=== PATIENT | female | born 2000 | race Caucasian/White ===

== ENCOUNTER 2021-08-05 17:15 | Emergency (ER) | payer MEDICAID, SELFPAY ==
[2021-08-05 17:27] VITALS: BP 134/90; PULSE 85; RESP 16; TEMP 36.3; O2SAT 100
--- NOTE | 2021-08-05 17:29 | ED.FEMALEGU ---
HPI - Female Genitourinary General Chief complaint: Urogenital-Female Stated complaint: STD Time Seen by Provider: 08/05/21 17:29 Source: patient Mode of arrival: ambulatory Limitations: no limitations History of Present Illness HPI Narrative: 21-year-old female presents with complaint of dysuria, urgency, frequency for 2 to 3 days. Reports started next day after sexual intercourse. Denies nausea vomiting diarrhea. Denies fever chills. Denies abdominal or back pain. Denies vaginal discharge. All systems reviewed and negative except as noted above. Related Data Allergies Allergy/AdvReac Type Severity Reaction Status Date / Time No Known Allergies Allergy Verified 08/05/21 17:49 Review of Systems Review of Systems: CONSTITUTIONAL: Denies fever, chills, or sweats. EYES: Denies visual changes, redness, or discharge. ENT: Denies rhinorrhea, congestion, sore throat, or otalgia. CARDIOVASCULAR: Denies chest pain, palpitations, or edema. RESPIRATORY: Denies cough or dyspnea. GASTROINTESTINAL: Denies abdominal pain, nausea, vomiting, or diarrhea. GENITOURINARY: Reports dysuria, frequency, urgency. Denies hematuria. SKIN: Denies rash or itching. MUSCULOSKELETAL: Denies back pain, joint pain, or myalgia. NEUROLOGIC: Denies headache, numbness, or weakness. PSYCHIATRIC: Denies anxiety or depression. All other systems reviewed are negative, except as documented in HPI. PMFSH Comments At time of signature, agree with nursing past medical, surgical, social and family history. There is no relevant family history pertinent to the presenting complaint. Exam Narrative: GENERAL: This is a well-nourished, well-developed patient, in no apparent distress. HEAD: normocephalic, atraumatic. EYES: PERRL. Sclera clear/white. EARS: External ears normal tact. NOSE: External nose normal THROAT: Mucous membranes moist, posterior pharynx clear. NECK: Neck supple, non-tender without lymphadenopathy, masses or thyromegaly. CARDIOVASCULAR: Regular rate and rhythm without murmurs, gallops, or rubs. RESPIRATORY: Clear to auscultation. Breath sounds equal bilaterally. No wheezes, rales, or rhonchi. SKIN: warm, Dry, intact with no suspicious lesions or rash, good texture and turgor. NEURO: awake, alert, and oriented to person, place and time. There were no obvious focal neurologic abnormalities. EXTREMITIES: Normal range of motion to all extremities. BACK: Nontender without deformity. No CVA tenderness. Course Course Level of Care: Express Care Visit Vital Signs Vital signs: Vital Signs Temperature 36.3 C L 08/05/21 17:27 Pulse Rate 85 08/05/21 17:27 Respiratory Rate 16 08/05/21 17:27 Blood Pressure 134/90 08/05/21 17:27 Pulse Oximetry 100 08/05/21 17:27 Temperature 36.3 C L 08/05/21 17:27 Pulse Rate 85 08/05/21 17:27 Respiratory Rate 16 08/05/21 17:27 Blood Pressure 134/90 08/05/21 17:27 Pulse Oximetry 100 08/05/21 17:27 Reviewed MDM - Female Genitourinary MDM Narrative Medical decision making narrative: Patient is aware of diagnosis, understands and agrees to treatment plan. Anticipatory guidance given. Patient agrees to follow-up as directed and is aware of reasons to seek care at the emergency department. Portions of this record may have been created with voice recognition software Differential Diagnosis Differential diagnosis: Likely urinary tract infection and cystitis Lab Data Labs: Urine Glucose Negative Reference Range: Negative Urine Bilirubin Negative Reference Range: Negative Urine Ketone Negative Reference Range: Negative Urine Specific [place] 1.030 Reference Range:1.001-1.035 Urine Blood 3+
== END 2021-08-05 17:51 | disposition home or self-care (01) ==
PROVIDERS: Emergency Provider Nurse Practitioner Family
DX: N39.0 Urinary tract infection, site not specified (principal)
CPT/HCPCS: 81003; 87077; 87086; 87088; 87186; 99213; G0463

== ENCOUNTER 2021-08-08 13:08 | Emergency (ER) | payer MEDICAID, SELFPAY ==
[2021-08-08 13:18] VITALS: BP 116/86; PULSE 89; RESP 16; TEMP 36.5; O2SAT 99
--- NOTE | 2021-08-08 13:20 | ED.ABDPAIN ---
HPI - Abdominal Pain General Chief Complaint: Abdominal Pain Stated Complaint: Abdominal Pain Time Seen by Provider: 08/08/21 13:50 Source: patient, RN notes reviewed and old records reviewed Mode of arrival: ambulatory Limitations: no limitations History of Present Illness HPI narrative: 21-year-old female presents to the [facility] with increased pain of suprapubic, left lower, left upper, epigastric and right upper quadrants. Patient was seen on August 05 and diagnosed with a UTI. Patient states that she started taking her Bactrim on Sunday and has taken the Pyridium. Patient also states that she is not getting any better with taking Tylenol. Denies fevers, chest pain, nausea or vomiting. MD elicited complaint: abdominal pain Related Data Allergies Allergy/AdvReac Type Severity Reaction Status Date / Time No Known Allergies Allergy Verified 08/08/21 13:25 Review of Systems Review of Systems: All systems reviewed & are unremarkable except as noted in HPI and below Constitutional: Constitutional: Reports no additional constitutional complaints, Denies body ache(s), Denies chills and Denies fever(s) Eyes: Eyes: Reports no additional eye complaints ENT: Reports system reviewed and no additional complaints, except as documented Cardiovascular: Cardiovascular: Reports no additional cardiovascular complaints, Denies chest pain and Denies dyspnea Respiratory: Respiratory: Reports no additional respiratory complaints, Denies cough and Denies dyspnea Gastrointestinal: Gastrointestinal: Reports as per HPI, Reports abdominal pain, Denies diarrhea, Denies nausea and Denies vomiting Genitourinary: Genitourinary: Reports no additional female genitourinary complaints, Denies hematuria, Denies dysuria and Denies urinary incontinence Musculoskeletal: Musculoskeletal: Reports no additional musculoskeletal complaints and Denies back pain Integumentary/Breasts: Skin/Breast: Reports system reviewed and no additional complaints, except as docu Neurologic: Reports system reviewed and no additional complaints, except as documented Psychiatric: Psychiatric: Reports no additional psychiatric complaints Allergic/Immunologic: Allergic/Immunologic: Reports no additional allergic/immunologic complaints PMFSH Past Medical History Medical History (Updated 08/08/21 @ 15:58 by Quiana Morin APRN) Patient denies medical problems Surgical History Surgical History (Updated 08/08/21 @ 14:00 by Quiana Morin APRN) No pertinent past surgical history Social History Social History (Updated 08/08/21 @ 14:01 by MAICO Albarran Gender identity (if verbalized by the patient): Female Comments At the time of my signature, I reviewed and agree with the nursing past medical, surgical, social, and family history. There is no relevant family history pertinent to the patient complaint. Exam Const: General: cooperative, healthy appearing, comfortable, no acute distress, well developed and alert Nutritional Appearance: well nourished Orientation/consciousness: patient oriented x3 Limitations: no limitations HENMT: Head: normal to inspection Ears: external ears normal Eyes: Pupils: Equal, round and reactive pupils present Neck: Neck: normal visual inspection, no lymphadenopathy and no meningeal signs Chest: Chest palpation & inspection: normal inspection of the chest Resp: Effort & Inspection: normal respiratory effort, able to speak in complete sentences and no use of accessory muscles Auscultation: clear to auscultation bilaterally Cardio: Rate: regular rate Rhythm: regular rhythm GI: GI Palp: Yes Soft to palpation, Yes Tenderness to palpation present (GI) (Left upper, left flank, left lower, suprapubic, right upper), No Guarding due to palpation present (GI) and No Rigid due to palpation Auscultation: normal bowel sounds : General: Yes no CVA tenderness Back/Spine/Pelvis: Back: no CVA tenderness Skin: General
== END 2021-08-08 13:59 | disposition left against medical advice (07) ==
PROVIDERS: Emergency Provider Nurse Practitioner
DX: R10.11 Right upper quadrant pain (principal); R10.12 Left upper quadrant pain; R10.32 Left lower quadrant pain
CPT/HCPCS: 99211; G0463

== ENCOUNTER 2022-07-30 17:17 | Emergency (ER) | payer BC, SELFPAY ==
--- NOTE | 2022-07-30 17:44 | PC.NURSE ---
1733- This pt told registration she had a family emergency and could not wait to be seen. LWBS was not triage or seen by this RN
== END 2022-07-30 17:33 | disposition left against medical advice (07) ==
PROVIDERS: Emergency Provider Internal Medicine Hematology & Oncology
DX: Z53.21 Procedure and treatment not carried out due to patient leaving prior to being seen by health care provider (principal)
CPT/HCPCS: 99199

== ENCOUNTER 2022-07-31 11:47 | Emergency (ER) | payer BC, SELFPAY ==
[2022-07-31 11:57] VITALS: BP 131/80; PULSE 106; RESP 16; TEMP 37.2; O2SAT 99
--- NOTE | 2022-07-31 12:18 | ED.FEMALEGU ---
HPI - Female Genitourinary General Chief complaint: Urogenital-Female Stated complaint: STD Time Seen by Provider: 07/31/22 12:13 Source: patient Mode of arrival: ambulatory Limitations: no limitations History of Present Illness HPI Narrative: Patient presents today reporting there is an external, ?bump? on her labia that popped up yesterday. It is not painful. She is 24 weeks , all and sees the OBs at [place]. She is also requesting to be tested for STDs. She has no urinary symptoms and no abnormal vaginal discharge. Patient is unsure if she has had exposure to STDs. Related Data Allergies Allergy/AdvReac Type Severity Reaction Status Date / Time No Known Allergies Allergy Verified 07/31/22 11:57 Review of Systems Review of Systems: CONSTITUTIONAL: Denies body aches, fever, chills, or sweats. EYES: Denies visual changes, redness, or discharge. ENT: Denies rhinorrhea, congestion, sore throat, or otalgia. CARDIOVASCULAR: Denies chest pain, palpitations, or edema. RESPIRATORY: Denies cough or dyspnea. GASTROINTESTINAL: Denies abdominal pain, nausea, vomiting, or diarrhea. GENITOURINARY: Denies dysuria or hematuria. +Genital lesion SKIN: Denies rash, itching, or wounds. MUSCULOSKELETAL: Denies back pain, joint pain, or myalgia. NEUROLOGIC: Denies headache, numbness, tingling, or weakness. PSYCH: Denies depression or anxiety. [facility] Past Medical History Medical History No pertinent past medical history Surgical History Surgical History No pertinent past surgical history Social History Social History Smoking status: Never smoker Alcohol intake: current Alcohol use details: social Substance use type: does not use Living arrangements: with family Gender identity (if verbalized by the patient): Female Comments At time of signature, I have reviewed and agree with nursing past medical, surgical, social and family history unless otherwise noted. Please see nursing chart for further information. There is no relevant family history pertinent to the presenting complaint Exam Narrative: GENERAL: Well-appearing, well-nourished, and in no acute distress. HEAD: Normocephalic, atraumatic. EYES: EOMI. No redness or drainage. Conjunctivae normal. ENT: Mucous membranes pink and moist. NECK: Normal AROM. CHEST: No respiratory distress. :Vaginal exam deferred due to . Patient will call her [employer]. 3-4 mm open lesion to the inner aspect of the left labia majora. No surrounding erythema, edema, drainage. No additional vulvar lesions noted. EXTREMITIES: Normal range of motion. No edema. SKIN: Warm, dry, no rash. Capillary refill normal. Normal skin turgor. NEURO: No focal deficits. Alert and oriented x3. Gait steady. PSYCH: Normal affect. No signs of depression or anxiety. Course Course Level of Care: Express Care Visit Vital Signs Vital signs: Vital Signs Temperature 98.9 F 07/31/22 11:57 Pulse Rate 106 H 07/31/22 11:57 Respiratory Rate 16 07/31/22 11:57 Blood Pressure 131/80 07/31/22 11:57 Pulse Oximetry 99 07/31/22 11:57 Oxygen Delivery Room Air 07/31/22 11:57 Temperature 98.9 F 07/31/22 11:57 Pulse Rate 106 H 07/31/22 11:57 Respiratory Rate 16 07/31/22 11:57 Blood Pressure 131/80 07/31/22 11:57 Pulse Oximetry 99 07/31/22 11:57 Oxygen Delivery Room Air 07/31/22 11:57 Reviewed. Pt has been instructed to follow up with her PCP regarding her elevated blood pressure today. MDM - Female Genitourinary MDM Narrative Medical decision making narrative: Have instructed patient to call her OBGYN regarding the labial lesion as we do not have capabilities of swabbing this lesion for additional testing. Will run gonorrhea, chlamydia, and Trichomonas from urin
== END 2022-07-31 12:39 | disposition home or self-care (01) ==
PROVIDERS: Emergency Provider Nurse Practitioner
DX: O99.891 Other specified diseases and conditions complicating pregnancy (principal); Z3A.24 24 weeks gestation of pregnancy; N90.89 Other specified noninflammatory disorders of vulva and perineum; Z11.3 Encounter for screening for infections with a predominantly sexual mode of transmission
CPT/HCPCS: 87491; 87591; 87661; 99213; G0463

== ENCOUNTER 2023-06-23 21:21 | Emergency (ER) | payer BC, SELFPAY ==
[2023-06-23 21:38] VITALS: BP 124/88; PULSE 100; RESP 19; TEMP 36.9; O2SAT 100
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
[2023-06-23 22:17] VITALS: BP 118/76; PULSE 99; RESP 18; TEMP 36.7; O2SAT 100
== END 2023-06-23 22:19 | disposition home or self-care (01) ==
LOC: ANHED 22:13
PROVIDERS: Emergency Provider Emergency Medicine
DX: O26.892 Other specified pregnancy related conditions, second trimester (principal); R10.9 Unspecified abdominal pain; Z3A.21 21 weeks gestation of pregnancy
CPT/HCPCS: 99281

== ENCOUNTER 2024-02-05 10:04 | Emergency (ER) | payer BC, SELFPAY ==
--- NOTE | 2024-02-05 10:11 | ED.FEMALEGU ---
HPI - Female Genitourinary General Chief complaint: Abdominal Pain Stated complaint: UTI/Body Pains/Weakness Time Seen by Provider: 02/05/24 10:11 Source: patient, RN notes reviewed and old records reviewed Mode of arrival: ambulatory Limitations: no limitations History of Present Illness HPI Narrative: 23-year-old female presents to the [facility] with complaints generalized abdominal pain, body aches, weakness that started and has been increasing over the last 2 days. Patient reports 01/23 pain. Unknown last menstrual period, is 5 months Patient denies fevers. Denies any nausea or vomiting. Denies any urinary symptoms, frequency urgency or burning. Onset (ago): day(s) (2) Treatment prior to arrival: none Related Data Home Medications Medication Instructions Recorded Confirmed No Home Medications 02/05/24 02/05/24 Allergies Allergy/AdvReac Type Severity Reaction Status Date / Time No Known Allergies Allergy Verified 06/23/23 21:41 Review of Systems Review of Systems: All systems reviewed & are unremarkable except as noted in HPI and below Constitutional: Constitutional: Reports no additional constitutional complaints ENT: Reports system reviewed and no additional complaints, except as documented Cardiovascular: Cardiovascular: Reports no additional cardiovascular complaints, Denies chest pain and Denies dyspnea Respiratory: Respiratory: Reports no additional respiratory complaints, Denies chest congestion, Denies cough and Denies dyspnea Gastrointestinal: Gastrointestinal: Reports as per HPI, Reports abdominal pain, Denies bloating, Denies change in bowel habits, Denies nausea and Denies vomiting Genitourinary: Genitourinary: Reports no additional female genitourinary complaints, Denies dysuria and Denies pelvic pain Musculoskeletal: Musculoskeletal: Reports no additional musculoskeletal complaints Integumentary/Breasts: Skin/Breast: Reports system reviewed and no additional complaints, except as docu PMFSH Past Medical History Medical History Patient denies medical problems Surgical History Surgical History No pertinent past surgical history Social History Social History Gender identity (if verbalized by the patient): Female Comments At the time of my signature, I reviewed and agree with the nursing past medical, surgical, social, and family history. There is no relevant family history pertinent to the patient complaint. Exam Const: General: cooperative, healthy appearing, no acute distress, well developed, alert and well nourished Nutritional Appearance: well nourished Orientation/consciousness: patient oriented x3 Limitations: no limitations HENMT: Head: normal to inspection Ears: hearing grossly normal bilaterally and external ears normal Face/Nose/Sinus: Normal external nose present, normal facial exam and face symmetric Face and sinus: normal facial exam and face symmetric Mouth: Yes Normal oral and palatal mucosa present, Yes lip normal and Yes tongue normal Eyes: General: appearance normal, both eyes and all related structures Alignment and Position: alignment normal Periorbital: periorbital findings normal Neck: Neck: normal visual inspection, full ROM, no lymphadenopathy and no meningeal signs Chest: Chest palpation & inspection: normal inspection of the chest Resp: Effort & Inspection: normal respiratory effort and able to speak in complete sentences Cardio: Rate: regular rate GI: GI Palp: Yes abdominal tenderness (Generalized) and Yes Soft to palpation Auscultation: normal bowel sounds Skin: General skin exam: normal color and no rashes or lesions noted Lesions: no lesions Rashes: no rashes Wounds: no wounds Neuro: General: patient oriented x3, gait normal, tone normal, moves all extremities an
[2024-02-05 10:13] VITALS: BP 122/82; PULSE 105; RESP 16; TEMP 36.5; O2SAT 99
== END 2024-02-05 10:24 | disposition short-term general hospital (02) ==
PROVIDERS: Emergency Provider Nurse Practitioner
DX: R10.84 Generalized abdominal pain (principal)
CPT/HCPCS: 99212; G0463

== ENCOUNTER 2024-02-05 11:09 | Emergency (ER) | payer BC, SELFPAY ==
--- NOTE | ~2024-02-05 | CT_ITS ---
CT abdomen pelvis w con Ordering provider: Tami Luevano PA-C History: 23 years Female with . abd pain, leukocytosis . Comparison: None. Technique: CT abdomen and pelvis with IV and without oral contrast. Automated exposure control and it erative reconstruction technique were employed. The dose-length product was 808.96 mGy-cm. 100 mL Omn ipaque 350 was given IV. Findings: VISUALIZED LOWER CHEST: Dependent atelectatic changes. UPPER ABDOMINAL ORGANS: Liver: Normal. Gallbladder: Normal. Spleen: Normal. Stomach/duodenum: Normal. Pancreas: Normal. Adrenals: Normal. Kidneys: Hypodensity in the left kidney upper pole which measures 2 cm. Tiny cyst seen in the left ki dney mid pole. Scarring is seen in the left kidney lower pole. Hypodensity also seen in the right kid ace upper pole which measures 1.9 cm.. Scarring is seen in the right kidney lower pole. Tiny Stones s een in the right kidney lower pole. PELVIC ORGANS: The bladder is underfilled with thickened wall. Retroverted uterus. BOWEL AND MESENTERY: Colon: No evidence of diverticulitis. Minimal fluid is seen adjacent to the junction of the descendin g colon and sigmoid colon. Fecal material seen in the right side of the colon which may indicate cons tipation. Normal appendix. Small Bowel: Normal. No obstruction. Peritoneum/mesentery: No free air or free fluid. No mesenteric lymphadenopathy. RETROPERITONEUM: Normal aorta. No retroperitoneal lymphadenopathy. MUSCULOSKELETAL: Superficial soft tissues: The superficial soft tissues are normal. Bones: Normal spine. IMPRESSION: 1. No evidence of appendicitis, diverticulitis or intestinal obstruction. 2. Trace of fluid seen adjacent to the junction of the descending colon and sigmoid colon. No inflam matory changes seen in the area. Follow-up advised. 3. Hypodensities in both kidneys which are suspicious for focal mass or focal pyelonephritis. Furthe r evaluation and follow-up advised. 4. Tiny stones in the right kidney lower pole. 5. Bilateral lower pole scarring. Reviewed, dictated and finalized at location A. IMPRESSION: 1. No evidence of appendicitis, diverticulitis or intestinal obstruction. 2. Trace of fluid seen adjacent to the junction of the descending colon and si gmoid colon. No inflammatory changes seen in the area. Follow-up advised. 3. Hypodensities in both kidneys which are suspicious for focal mass or focal pyelonephritis. Further evaluation and follow-up advised. 4. Tiny stones in the right kidney lower pole. 5. Bilateral lower pole scarring.
[2024-02-05 11:14] VITALS: BP 118/74; PULSE 87; RESP 16; TEMP 36.8; O2SAT 99
--- NOTE | 2024-02-05 11:26 | ED.ABDPAIN ---
HPI - Abdominal Pain General Chief Complaint: Abdominal Pain Stated Complaint: ABD PAIN Time Seen by Provider: 02/05/24 11:21 Source: patient Mode of arrival: ambulatory Limitations: no limitations History of Present Illness HPI narrative: This is a 23-year-old female that presents to the emergency department for abdominal pain. Ongoing over the last couple of days. The pain is crampy in nature. Radiates to her flank. No other associated symptoms. Denies fevers, vomiting, diarrhea, dysuria, hematuria. Related Data Allergies Allergy/AdvReac Type Severity Reaction Status Date / Time No Known Allergies Allergy Verified 02/05/24 12:32 Review of Systems Review of Systems: CONSTITUTIONAL: Denies fever GASTROINTESTINAL: Reports abdominal pain. Denies nausea, vomiting, and diarrhea. GENITOURINARY: Denies dysuria or hematuria. All systems reviewed & are unremarkable except as noted in HPI and below PMFSH Past Medical History Medical History Patient denies medical problems Surgical History Surgical History No pertinent past surgical history Social History Social History (System 02/05/24 @ 12:32 by Shalini Childs) Smoking status: Never smoker Alcohol intake: current Alcohol use details: social Substance use: never Substance use type: does not use Living arrangements: with family Gender identity (if verbalized by the patient): Female Exam Narrative: GENERAL: Well-appearing, well-nourished, and in no acute distress. HEAD: Normocephalic, atraumatic. EYES: EOMI. CHEST: Clear to auscultation. No respiratory distress. No wheezes rales or rhonchi HEART: Regular rate and rhythm. No murmur heard. Normal peripheral pulses. ABDOMEN: Soft, nondistended, normal active bowel sounds. Mild tenderness to palpation throughout the abdomen, without guarding EXTREMITIES: Normal range of motion. No edema. SKIN: Warm, dry, no rash. NEURO: No focal deficits. Alert and oriented x3. PSYCH: Normal mood and affect Course Course Emergency Course: Patient updated on her workup and agrees with plan of care Vital Signs Vital signs: Vital Signs Temperature 98.2 F 02/05/24 11:14 Pulse Rate 87 02/05/24 11:14 Respiratory Rate 16 02/05/24 11:14 Blood Pressure 118/74 02/05/24 11:14 Pulse Oximetry 99 02/05/24 11:14 Temperature 98.2 F 02/05/24 11:14 Pulse Rate 87 02/05/24 11:14 Respiratory Rate 16 02/05/24 11:14 Blood Pressure 118/74 02/05/24 11:14 Pulse Oximetry 99 02/05/24 11:14 MDM - Abdominal Pain MDM Narrative Medical decision making narrative: patient presents to the emergency department for abdominal pain radiating into the flank. She is afebrile and nontoxic appearing. CBC with leukocytosis to 15.4. Metabolic panel without concerning findings. Urine with evidence of infection. This will be sent for culture. Patient given 1st dose of antibiotics IV in the ED. CT abdomen and pelvis shows findings of possible pyelonephritis. Patient updated on her workup and agrees with plan of care. Will be continued on oral antibiotics. She is to follow up with primary provider. She was given warnings to return to the ER Differential Diagnosis Differential diagnosis: Likely acute appendicitis, calculus of kidney, diverticulitis and other (UTI) Lab Data Attestation: I reviewed the patient's lab results. 02/05/24 11:40 02/05/24 11:40 Labs: Lab Results 02/05/24 02/05/24 Range/Units 11:38 11:40 WBC 15.4 H (4.5-10.0) K/mm3 RBC 4.62 (4.2-5.4) M/mm3 Hgb 13.0 (12.0-15.0) g/dL Hct 40.5 (37.0-47.0) % MCV 87.7 (80-100) fl MCH 28.1 (26-34) pg MCHC 32.1 (32-36) g/dl RDW 13.4 (11.5-14.5) % Plt Count 292 (150-375) k/mm3 MPV 10.5 H (7.4-10.4) fl Immature Gran % (Auto) 0.5 (0-0.5) % Neut % (Auto)
[2024-02-05 11:41] LABS: BEDSIDEPREGUCG Negative (Negative)
[2024-02-05 11:48] LABS: Basophils Percent Auto 0.3 % (0.2-1.2); Hematocrit 40.5 % (37.0-47.0); Immature Granulocyte Absolute 0.07 K/mm3 (0.00-0.031); Immature Granulocyte Percent A 0.5 % (0-0.5); Lymphocytes Absolute Auto 1.49 K/mm3 (0.9-3.2); Lymphocytes Percent Auto 9.7 % (18.3-44.2); Mean Corpuscular HGB Conc 32.1 g/dl (32-36); Mean Corpuscular Hemoglobin 28.1 pg (26-34); Mean Corpuscular Volume 87.7 fl (80-100); Mean Platelet Volume 10.5 fl (7.4-10.4); Monocytes Absolute Auto 1.3 K/mm3 (0.1-0.6); Monocytes Percent Auto 8.6 % (2.6-8.5); Neutrophils Absolute Auto 12.5 K/mm3 (1.3-6.7); Neutrophils Percent Auto 80.9 % (45.5-73.1); Platelet Count Result 292 k/mm3 (150-375); Red Blood Count 4.62 M/mm3 (4.2-5.4); Red Cell Distribution Width 13.4 % (11.5-14.5); White Blood Count 15.4 K/mm3 (4.5-10.0)
[2024-02-05 12:01] LABS: Add Urine Microscopic? YES; Appearance Urine Turbid (Clear); Bacteria Urine 4+ /hpf; Bilirubin Urine Negative (Negative); Blood Urine 3+ (Negative); Color Urine Yellow (Yellow); Glucose Urine UA Negative (Negative); Ketones Urine Negative (Negative); Leukocyte Esterase Ur 3+ LEU/UL (Negative); Need Manual Microscopic Reviewed; Nitrate Urine Negative (Negative); Non Pathogenic Casts 0-2; Protein Urine 1+ mg/dL (Negative); Specific Grav Ur 1.014 (1.001-1.035); Squamous Epithelial Cell Urine Moderate /hpf (Few); Urobilinogen Urine 0.2 mg/dL (<2.0); WBC Urine >100 /hpf (0-3)
[2024-02-05 12:03] LABS: Alanine Aminotransferase 14 U/L (6-35); Albumin Level 4.6 g/dL (3.5-5.1); Alkaline Phosphatase 96 U/L (38-126); Anion Gap 12 mmol/L (4-12); Aspartate Amino Transferase 15 U/L (14-36); Bilirubin,Total 0.6 mg/dL (0.2-1.3); Blood Urea Nitrogen 10 mg/dL (7-17); Calcium 9.5 mg/dL (8.4-10.2); Carbon Dioxide 22 mmol/L (22-30); Chloride 103 mmol/L (98-107); Estimated CRCL calculation 88 ml/min; Estimated Glomerular Filt Rate > 60; Glucose 104 mg/dL (65-110); Lipase 49 U/L (23-300); Potassium 3.9 mmol/L (3.4-5.0); Sodium 137 mmol/L (137-145)
[2024-02-05 13:10] VITALS: BP 129/74; PULSE 83; RESP 16; TEMP 36.7; O2SAT 100
[2024-02-05 13:47] VITALS: BP 124/69; PULSE 73; RESP 16; O2SAT 100
== END 2024-02-05 13:45 | disposition home or self-care (01) ==
PROVIDERS: Emergency Provider Physician Assistant
DX: N12 Tubulo-interstitial nephritis, not specified as acute or chronic (principal)
CPT/HCPCS: 36415; 74177; 80053; 81001; 81025; 83690; 85025; 87077; 87086; 87186; 96365; 99284; J0696; Q9967

== ENCOUNTER 2024-07-04 10:57 | Emergency (ER) | payer BC, SELFPAY ==
--- NOTE | 2024-07-04 11:00 | ED_ITS ---
HPI - Skin/Abscess/Foreign Bdy General Chief complaint: Skin/Abscess/Foreign Body Stated complaint: spots on hands burn,fingers swollen Time Seen by Provider: 07/04/24 11:00 Source: patient Mode of arrival: ambulatory Limitations: no limitations History of Present Illness HPI narrative: Amelia is a 24 year old female patient presenting to the clinic today with c/o finger swelling and bumps on her hands. States her hands are itching and burning. Was working on her car yesterday and was wearing some new gloves. Also was using some hand fitness attendant. Denies any other changes in soaps, detergent, lotions, or shampoos. No new changes in medications or foods. Related Data Allergies Allergy/AdvReac Type Severity Reaction Status Date / Time No Known Allergies Allergy Verified 07/04/24 11:01 Review of Systems Review of Systems: Pertinent positives per HPI. Patient denies any fever, chills, headache, visual changes, dizziness, cough, shortness of breath, chest pain, palpitations, nausea, vomiting, diarrhea, constipation, abdominal pain, or any urinary issues. PMFSH Past Medical History Medical History No pertinent past medical history No pertinent past medical history Patient denies medical problems Surgical History Surgical History No pertinent past surgical history No pertinent past surgical history Social History Social History Smoking status: Never smoker Alcohol intake: current Alcohol use details: social Substance use: never Substance use type: does not use Living arrangements: with family Gender identity (if verbalized by the patient): Female Comments At the time of my signature, I reviewed and agree with the nursing past medical, surgical, social, and family history. There is no relevant family history pertinent to the patient complaint. Exam Narrative: General: Well-developed, well nourished, in no apparent distress Head: Normocephalic, atraumatic. Cardio: Regular rate and rhythm, s1 and s2 normal, no murmur appreciated. Resp: Clear to auscultation bilaterally, no rhonchi, rales, wheezing or rubs. Integumentary: [place], warm, and dry, intact without lesion, red, raised, itchy blister-like lesions to bilateral hands. Course Course Emergency Course: Portions of this record may have been created with voice recognition software. Level of Care: Express Care Visit Vital Signs Vital signs: Vital Signs Temperature 35.8 C L 07/04/24 11:05 Pulse Rate 92 07/04/24 11:05 Respiratory Rate 16 07/04/24 11:05 Blood Pressure 135/81 07/04/24 11:05 Pulse Oximetry 99 07/04/24 11:05 Oxygen Delivery Room Air 07/04/24 11:05 Temperature 35.8 C L 07/04/24 11:05 Pulse Rate 92 07/04/24 11:05 Respiratory Rate 16 07/04/24 11:05 Blood Pressure 135/81 07/04/24 11:05 Pulse Oximetry 99 07/04/24 11:05 Oxygen Delivery Room Air 07/04/24 11:05 Vital signs reviewed MDM - Skin/Abscess/Foreign Bdy MDM Narrative Medical decision making narrative: At the time of visit patient is resting comfortably on the exam table. Patient appears to be nontoxic. Plan: I suspect patient has contact dermatitis to her hands. Prescription for prednisone and triamcinolone cream was sent to the pharmacy. Supportive measures were discussed with the patient and they voiced understanding discharge instructions and agrees to treatment plan. Return precautions reviewed Differential Diagnosis Differential diagnosis: Likely abscess of skin or subcutaneous tissue, viral exanthem, dermatophytosis, urticaria, herpes zoster, allergic reaction to drug, cellulitis, eczema, insect bites, impetigo and contact dermatitis Discharge Plan Discharge Clinical Impression: Contact dermatitis Qualifiers: Contact dermatitis type: irritant Contact dermatitis trigger: unspecified trigger Qualified Code(s): L24.9 - Irritant contact dermatitis, unspecified cause Patient Disposition: Home, Self-Care Condition: Stable Instructions: Antibiotic Form, Contact Dermatitis (ED) Additional Instructions: Apply triamcinolone cream as directed Take prednisone as directed Avoid hot showers May apply CeraVe, Aquaphor, or Lubriderm lotion twice daily to moisturize skin Avoid scratching as this can cause a secondary infection May take benadryl 25-50mg every 6 hours as needed for itching. Follow up with your PCP in 3-5 days if symptoms persist or sooner if they worsen Go to the Emergency Room if symptoms worsen- fever, rash spreading with treatment, shortness of breath, tongue swelling, drooling, or chest pain Patient Language: German Prescriptions: New prednisone 20 mg tablet 40 mg PO DAILY 5 Days Qty: 10 0RF triamcinolone acetonide 0.1 % cream 1 applic topical BID 7 Days Qty: 30 0RF Follow-up/Referrals: PHYSICIAN,[employer] DRIVER [Primary Care Provider] - Stand Alone Forms: Work/School Release IP Time of Disposition: 11:13 Quality NIHSS Nursing Documentation ED NIHSS nursing documentation: reviewed/agree
[2024-07-04 11:05] VITALS: BP 135/81; PULSE 92; RESP 16; TEMP 35.8; O2SAT 99
== END 2024-07-04 11:25 | disposition home or self-care (01) ==
PROVIDERS: Emergency Provider Nurse Practitioner Family
DX: L24.9 Irritant contact dermatitis, unspecified cause (principal)
CPT/HCPCS: 99213; G0463

== ENCOUNTER 2024-09-07 09:20 | Emergency (ER) | payer BC, SELFPAY ==
--- NOTE | 2024-09-07 09:22 | ED_ITS ---
HPI - Skin/Abscess/Foreign Bdy General Chief complaint: Skin/Abscess/Foreign Body Stated complaint: Bumps/Skin Issues, Right Ankle Pain Time Seen by Provider: 09/07/24 09:21 Source: patient Mode of arrival: ambulatory Limitations: no limitations History of Present Illness HPI narrative: Amelia is a 24-year-old female patient presenting to the clinic today with complaints a skin rash x2 weeks and as well as right lateral ankle pain times 1 day. She reports she started having a scabbed over painful rash that started on her elbow 2 weeks ago and has gradually spread on her arms and legs. Denies any on her torso. Area is very painful, red, and mildly swollen around. Had a dog scratch to the right lateral ankle last night and is red and swollen around this dog scratch. No fevers, chills, body aches. Tetanus is unknown. Related Data Allergies Allergy/AdvReac Type Severity Reaction Status Date / Time No Known Allergies Allergy Verified 09/07/24 09:55 Review of Systems Review of Systems: Pertinent positives per HPI. Patient denies any fever, chills, headache, visual changes, dizziness, cough, runny nose, sore throat, shortness of breath, chest pain, palpitations, nausea, vomiting, diarrhea, constipation, abdominal pain, or any urinary issues. [facility] Past Medical History Medical History No pertinent past medical history No pertinent past medical history Patient denies medical problems Surgical History Surgical History No pertinent past surgical history No pertinent past surgical history Social History Social History Smoking status: Never smoker Alcohol intake: current Alcohol use details: social Substance use: never Substance use type: does not use Living arrangements: with family Gender identity (if verbalized by the patient): Female Comments At the time of my signature, I reviewed and agree with the nursing past medical, surgical, social, and family history. There is no relevant family history pertinent to the patient complaint. Exam Narrative: General: Well-developed, well nourished, in no apparent distress Head: Normocephalic, atraumatic. Cardio: Regular rate and rhythm, s1 and s2 normal, no murmur appreciated. Resp: Clear to auscultation bilaterally, no rhonchi, rales, wheezing or rubs Integumentary: [place], warm, and dry, 4 red raised scabbed over sores to the right elbow with scaling/plaque like skin base to the right elbow with multiple red raised yellow circular painful crusting scabbed over wounds on the arms and legs with localized redness, ttp, without drainage, right lateral ankle dog scratch wound- 2cm scabbed over wound with 7x 5.5cm surrounding redness without induration, ttp with erythema Course Course Emergency Course: Portions of this record may have been created with voice recognition software. Level of Care: Express Care Visit Vital Signs Vital signs: Vital Signs Temperature 36.9 C 09/07/24 09:27 Pulse Rate 88 09/07/24 09:27 Respiratory Rate 20 09/07/24 09:27 Blood Pressure 142/86 H 09/07/24 09:27 Pulse Oximetry 100 09/07/24 09:27 Oxygen Delivery Room Air 09/07/24 09:27 Temperature 36.9 C 09/07/24 09:27 Pulse Rate 88 09/07/24 09:27 Respiratory Rate 20 09/07/24 09:27 Blood Pressure 142/86 H 09/07/24 09:27 Pulse Oximetry 100 09/07/24 09:27 Oxygen Delivery Room Air 09/07/24 09:27 Vital signs reviewed MDM - Skin/Abscess/Foreign Bdy MDM Narrative Medical decision making narrative: At the time of visit patient is resting comfortably on the exam table. Patient appears to be nontoxic. Medications: Tdap 0.5 mL IM given in the clinic today and Motrin 800 mg p.o. Plan: I suspect patient likely has a bacterial skin infection (staph) with localized cellulitis to the right ankle from a dog scratch. Prescription for chlorhexidine and clindamycin was sent to the pharmacy. Supportive measures were discussed with the patient and they voiced understanding discharge instructions and agrees to treatment plan. Return precautions reviewed Differential Diagnosis Differential diagnosis: Likely abscess of skin or subcutaneous tissue, viral exanthem, dermatophytosis, urticaria, herpes zoster, allergic reaction to drug, cellulitis, eczema, insect bites, impetigo, contact dermatitis and other (Ankle sprain, ankle fracture, tendinitis) Discharge Plan Discharge Clinical Impression: Bacterial infection of skin, Wound infection Cellulitis Qualifiers: Site of cellulitis: extremity Site of cellulitis of extremity: lower extremity Laterality: right Qualified Code(s): L03.115 - Cellulitis of right lower limb Patient Disposition: Home Condition: Stable Instructions: Antibiotic Form, Wound Infection (ED), Cellulitis (ED) Additional Instructions: Tdap was updated in the clinic today Take clindamycin as prescribed Wash daily with chlorhexidine x1 week Keep wounds covered-especially if they draining Recommend taking a probiotic daily 2 hours before or 2 hours after taking the antibiotic dosing Increase fluids and stay well hydrated May take Tylenol/Motrin as needed for pain or fever Go to the emergency room if symptoms worsen-developed fever is not controlled by Tylenol Motrin, increase in swelling, increase in pain, confusion, weakness, lethargy, dehydration, chest pain, or shortness of breath Follow-up with a primary care doctor next week-Dr. Nayak is accepting accepting new patients- [phone] Follow up with Senior Financial Reporting Analyst- Dr. Hutton.?Call office to schedule an appointment:?[phone] Patient Language: [place] Prescriptions: New clindamycin HCl [Cleocin HCl] 300 mg capsule 300 mg PO Q8H 10 Days Qty: 30 0RF chlorhexidine gluconate 4 % liquid 1 applic topical DAILY 7 Days Qty: 236 0RF No Action triamcinolone acetonide 0.1 % cream 1 applic topical BID 7 Days Qty: 30 0RF Follow-up/Referrals: Brady Nayak DO [Physician] - 2 Days (Establish care/staph infection/right ankle cellulitis) UNKNOWN,DOCTOR [Non-Staff] - Stand Alone Forms: Work/School Release IP Time of Disposition: 09:33 Quality NIHSS Nursing Documentation ED NIHSS nursing documentation: reviewed/agree
[2024-09-07 09:27] VITALS: BP 142/86; PULSE 88; RESP 20; TEMP 36.9; O2SAT 100
[2024-09-07] MEDS: TETANUS,DIPHTHERIA,AC PERTUSSIS ADULT (0.5 ML) BOOSTRIX IM (09:46)
[2024-09-07] MEDS: IBUPROFEN 400 MG TABLET 800 MG PO (09:51)
== END 2024-09-07 10:12 | disposition home or self-care (01) ==
PROVIDERS: Emergency Provider Nurse Practitioner Family
DX: L08.9 Local infection of the skin and subcutaneous tissue, unspecified (principal); B96.89 Other specified bacterial agents as the cause of diseases classified elsewhere; S90.511A Abrasion, right ankle, initial encounter; L03.115 Cellulitis of right lower limb; W54.8XXA Other contact with dog, initial encounter; Z23 Encounter for immunization
CPT/HCPCS: 90471; 90715; 99213; A9270; G0463